=== PATIENT | male | born 1975 | race Hispanic/Latino ===

== ENCOUNTER 2018-09-20 09:55 | Emergency (ER) | payer OTHER ==
[2018-09-20] MEDS ORDERED: VALTREX1 GM PO (10:56)
[2018-09-20] MEDS ORDERED: PREDNISONE10 MG PO (10:56)
[2018-09-20 11:12] VITALS: BP 150/92
== END 2018-09-20 11:12 | disposition home or self-care (01) | DRG 74 ==
LOC: ED 09:55
DX: G51.0 Bell's palsy (principal)

== ENCOUNTER 2019-09-02 09:04 | Observation (INO) | payer OTHER ==
[~2019-09-02 09:04] MED LIST: PREDNISONE10 MG PO; VALTREX1 GM PO
--- NOTE | 2019-09-02 09:05 | NUR ---
PT AMB TO ROOM WITH SLOW STEADY GAIT FOR TRIAGE
--- NOTE | 2019-09-02 09:34 | NUR ---
PT MEDICATED PER MAR FOR RECTAL PAIN RATING 10 OUT OF 10; MONITORING DEVICES IN PLACE; PT ADVISED OF CONTINUED WAIT TIME; WILL CONTINUE TO MONITOR
[2019-09-02 09:41] LABS: HEMOGLOBIN 16.2 g/dl (14.0-18.0); IMMATURE GRANULOCYTES 0.6 % (0.0-5.0); MEAN CELL VOLUME 92.1 fL CALC (80.0-100.0); MEAN CORPUSCULAR HGB 30.5 pG CALC (26.0-32.0); MEAN CORPUSCULAR HGB CONC 33.1 g/dL CAL (32.0-36.0); NEUT# 17.54 thou/uL (1.82-7.42); RED BLOOD COUNT 5.32 mill/uL (4.70-6.10); RED CELL DISTRI WIDTH 12.2 % (11.5-15.5)
--- NOTE | 2019-09-02 10:30 | NUR ---
PT RESTING ON STRETCHER; PT STATES PAIN HAS DECREASED; VSS; PT ADVISED OF CONTINUED WAIT TIME; CALL LIGHT WITHIN REACH; WILL CONTINUE TO MONITOR
[2019-09-02 10:57] LABS: ANION GAP 13 (6-22 (CALC)); BUN 5 mg/dL (9-20); BUN/CREATININE RATIO 9 (12-20 (CALC)); CARBON DIOXIDE 29 mmol/l (22-30); CHLORIDE 98 mmol/l (95-108); CREATININE 0.6 mg/dL (0.7-1.3); GFR > 60 ML/MIN (>=60 (CALC)); GFR FOR AFR.AMER. > 60 ML/MIN (>=60 (CALC)); POTASSIUM 3.7 mmol/l (3.5-5.1); SODIUM 136 mmol/l (137-146)
--- NOTE | 2019-09-02 11:30 | NUR ---
PT RESTING ON STRETCHER; NO S/S OF DISTRESS NOTED; VSS; WILL CONTINUE TO MONITOR
[2019-09-02 11:46] LABS: URINE BILIRUBIN - DIPSTICK NEGATIVE (NEGATIVE); URINE BLOOD DIPSTICK NEGATIVE (NEGATIVE); URINE COLOR YELLOW; URINE GLUCOSE - DIPSTICK 250 mg/dL (NEGATIVE); URINE KETONE NEGATIVE (NEGATIVE); URINE LEUK ESTERASE NEGATIVE (NEGATIVE); URINE NITRITE - DIPSTICK NEGATIVE (Negative); URINE PROTEIN - DIPSTICK NEGATIVE (NEG-TRACE); URINE UROBILINOGEN - DIPSTICK 0.2 E.U./dL (0.2)
--- NOTE | 2019-09-02 12:30 | NUR ---
PT RESTING ON STRETCHER; VSS; WILL CONTINUE TO MONITOR
--- NOTE | 2019-09-02 13:38 | NUR ---
PT MEDICATED PER MAR FOR RECTAL PAIN RATING 8 OUT OF 10; IV ANTIBIOTICS INFUSING; PT ADVISED OF CONTINUED WAIT TIME; WILL CONTINUE TO MONITOR
--- NOTE | 2019-09-02 14:10 | NUR ---
PT ARRIVED TO MS VIA WC ACCOMPANIED BY JUAN ALBERTO PICHARDO. A&O X3. NO DISTRESS NOTED. PT C/O OF SLIGHT DISCOMFORT ESPECIALLY WHEN HE WALKS OR MOVES. NO VISIBLE DRAINAGE OR ABSCESS NOTED TO PERIANAL AREA. PT INFORMED THAT PROCEDURE TO DRAIN ABSCESS WOULD TAKE PLACE TOMORROW MORNING AT 9 AM. PT VERBALIZED UNDERSTANDING. ORIENTED PT TO ROOM. [facility] APPLIED. NO OTHER NEEDS AT THIS TIME. ASSESSMENT COMPLETED. DISCUSSED POC. CALL LIGHT IN REACH. CONTINUE TO MONITOR.
--- NOTE | 2019-09-02 14:10 | NUR ---
Admission Note Report Given to: DEEPTI CALLE Transported by: X Wheelchair Stretcher Transported with: X Nurse Transporter X Patent [id number] Territory Manager Location: ICU X [facility]
[2019-09-02 14:39] VITALS: BP 131/71
--- NOTE | 2019-09-02 17:29 | NUR ---
OR CONSENT OBTAINED
[2019-09-02 19:15] VITALS: BP 130/66
--- NOTE | 2019-09-02 20:12 | NUR ---
PT SLEEPING, NO S/O DISTRESS NOTED. CALL LIGHT AT SIDE, TV AND LIGHTS ARE ON.
--- NOTE | 2019-09-02 23:46 | NUR ---
PT MEDICATED ORDERS PROVIDE. PT REPORTS BLEEDING FROM RECTOM, SMALL AMOUNT OF BLOOD SPOTS ON BED PAD, RECTOM VISUALIZED TO HAVE SMALL AMOUNT OF BLOODY DRAINAGE, BEDDING CHANGED AND PT PROVIDED NEW GOWN. PT REPORTS PAIN BEING BETTER. PT HAS BEEN PROVIDED ORANGE JUICE PRIOR TO NPO ORDERS, BUT ADVISED TO BE NPO AFTER MIDNIGHT, PT VERBALIZED UNDERSTANDING. CALL LIGHT IN HAND, TV AND LIGHTS ARE ON.
--- NOTE | 2019-09-03 02:30 | NUR ---
PT SLEEPING, NO S/O DISTRESS NOTED. LIGHTS AND TV ARE STILL ON. CALL LIGHT AT SIDE.
[2019-09-03 04:15] VITALS: BP 127/72
--- NOTE | 2019-09-03 05:15 | NUR ---
PT MEDICATED ORDERS PROVIDE W/ANTIBIOTIC THERAPY. PT AMBULATED TO RESTROOM AND BACK TO BED. SMALL AMOUNT OF BLOODY DISCHARGE OBSERVED FROM RECTOM AREA. PT REPORTS ONLY MILD DISCOMFORT AT THIS TIME. CALL LIGHT IS AT SIDE.
[2019-09-03 08:00] VITALS: BP 129/72
--- NOTE | 2019-09-03 08:15 | NUR ---
PT TAKEN TO SURGERY BY DAYAMI PICHARDO. PT IS ALERT, ORIENTED X 3, AMBULATORY. NO COMPLAINTS OF PAIN, NO EVIDENCE OF DISTRESS. LUNGS CLEAR, RA. BM X 2 DAYS AGO.
[2019-09-03 10:45] VITALS: BP 106/67
[2019-09-03 11:15] VITALS: BP 106/68
[2019-09-03 11:30] VITALS: BP 109/71
--- NOTE | 2019-09-03 13:27 | NUR ---
DISCHARGE ORDERS CARRIED OUT AFTER PT SEEN TO TOLERATE PO, NO NAUSEA, NO VOMITING. WOUND WITHOUT SIGNIFICANT BLEEDING. PT VERBALIZES UNDERSTANDING OF DC INSTRUCTIONS, WAITS IN ROOM FOR RIDE. NO REPORT OF PAIN.
== END 2019-09-03 13:46 | disposition home or self-care (01) | DRG 349 ==
LOC: ED 09:04 → ED-I 13:05 → ED 13:07 → MS2 13:08 → ED-I 13:08 → MS2 13:39
PROVIDERS: Student in an Organized Health Care Education/Training Program; ADMIT Surgery; ATTEND Surgery
PROC: 0D9QXZZ Drainage of Anus, External Approach (ICD-10-PCS; principal; 2019-09-03)
DX: K61.0 Anal abscess (principal); F17.210 Nicotine dependence, cigarettes, uncomplicated; Z11.59 Encounter for screening for other viral diseases
CPT/HCPCS: C9290; G0378; J0131; J1100; Q9967

== ENCOUNTER 2020-02-15 07:18 | Inpatient (IN) | payer OTHER ==
[~2020-02-15] VITALS: Ht 170.2 cm; Wt 76.4 kg
[2020-02-15] VITALS (8 sets, daily range): BP systolic 136–151; BP diastolic 69–95
[2020-02-15 08:12] LABS: HEMATOCRIT 49.3 % (39.0-50.0); HEMOGLOBIN 16.2 g/dl (14.0-18.0); IMMATURE GRANULOCYTES 0.6 % (0.0-5.0); MEAN CELL VOLUME 93.2 fL CALC (80.0-100.0); MEAN CORPUSCULAR HGB 30.6 pG CALC (26.0-32.0); MEAN CORPUSCULAR HGB CONC 32.9 g/dL CAL (32.0-36.0); NEUT# 19.14 thou/uL (1.82-7.42); RED BLOOD COUNT 5.29 mill/uL (4.70-6.10); RED CELL DISTRI WIDTH 12.5 % (11.5-15.5)
[2020-02-15 08:31] LABS: ALBUMIN 4.1 g/dL (3.2-5.0); ALKALINE PHOSPHATASE 111 u/l (38-126); BILIRUBIN, TOTAL 0.9 mg/dL (0.0-1.4); BUN 2 mg/dL (9-20); BUN/CREATININE RATIO 5 (12-20 (CALC)); CHLORIDE 104 mmol/l (95-108); CREATININE 0.5 mg/dL (0.7-1.3); GFR > 60 ML/MIN (>=60 (CALC)); GFR FOR AFR.AMER. > 60 ML/MIN (>=60 (CALC)); SGOT/AST 25 u/l (17-59); SODIUM 138 mmol/l (137-146); TOTAL PROTEIN 6.9 g/dL (6.3-8.2)
[2020-02-15 08:33] LABS: ANION GAP 15 (6-22 (CALC)); CARBON DIOXIDE 23 mmol/l (22-30)
[2020-02-15 09:50] LABS: URINE BILIRUBIN - DIPSTICK NEGATIVE (NEGATIVE); URINE BLOOD DIPSTICK NEGATIVE (NEGATIVE); URINE COLOR YELLOW; URINE GLUCOSE - DIPSTICK >=1000 mg/dL (NEGATIVE); URINE KETONE NEGATIVE (NEGATIVE); URINE LEUK ESTERASE NEGATIVE (NEGATIVE); URINE NITRITE - DIPSTICK NEGATIVE (Negative); URINE PROTEIN - DIPSTICK NEGATIVE (NEG-TRACE); URINE UROBILINOGEN - DIPSTICK 0.2 E.U./dL (0.2)
[2020-02-16] VITALS: BP 137/69
[2020-02-16 04:00] VITALS: BP 114/60
[2020-02-16 08:00] VITALS: BP 131/75
[2020-02-16 16:17] VITALS: BP 123/74
[2020-02-16 19:00] VITALS: BP 121/72
[2020-02-17 04:00] VITALS: BP 130/82
[2020-02-17 07:50] VITALS: BP 120/70
[2020-02-17] MEDS ORDERED: AMOX-POT CLA PO (11:48)
[2020-02-17] MEDS ORDERED: PERCOCET 5/325M1 TAB PO (11:49)
== END 2020-02-17 14:25 | disposition home or self-care (01) | DRG 346 ==
LOC: ED 07:18 → ED-I 09:52 → ED 10:07 → MS2 10:08
PROVIDERS: Family Medicine; ADMIT Surgery; ATTEND Surgery
PROC: 0D9P7ZZ Drainage of Rectum, Via Natural or Artificial Opening (ICD-10-PCS; principal; 2020-02-15)
DX: K61.2 Anorectal abscess (principal); K60.3 Anal fistula; Z20.828 Contact with and (suspected) exposure to other viral communicable diseases; Z72.0 Tobacco use
CPT/HCPCS: C9290; J1650; Q9967